=== PATIENT | female | born 1945 | race African-American/Black ===

== ENCOUNTER 2018-05-26 11:04 | Inpatient (IN) ==
[2018-05-26] MEDS ORDERED: DEXTROSE 50% 25 GM/50 ML VIAL IV PRN (12:41)
[2018-05-26] MEDS ORDERED: GLUCAGON 1 MG VIAL IM PRN (12:41)
[2018-05-26] MEDS ORDERED: ACETAMINOPHEN 325 MG TABLET PO PRN (12:41)
[2018-05-26] MEDS ORDERED: ONDANSETRON 4 MG/2 ML VIAL IV PRN (12:41)
[2018-05-26] MEDS ORDERED: SODIUM CHLORIDE 0.9% 1,000 ML IV PRN (12:48)
[2018-05-26] MEDS ORDERED: FUROSEMIDE 40 MG/4 ML VIAL IV ONE (13:10)
[2018-05-26] MEDS: ALBUTEROL/IPRATROPIUM 3 ML NEB RESP TX SCH ×2 (14:49→23:18)
[2018-05-26 17:03] LABS: Basophils % 0.3 % (0.0-0.8); Eosinophils # 0.1 10*3/uL (0.0-0.87); Eosinophils % 1.4 % (0.00-10.9); Immature Granulocytes % 0.6 %; Immature Granulocytes Absolute 0.04 #; Lymphocytes # 1.3 10*3/uL (1.4-4.0); Lymphocytes % 20.8 % (21.3-54.2); Mean Corpuscular Hemoglobin 26 PG (27-34); Mean Corpuscular Volume 92.6 FL (87-102); Mean Platelet Volume 11.5 FL (9.6-12.0); Monocytes # 0.5 10*3/uL (0.11-0.8); Monocytes % 8.6 % (1.7-12.7); NRBC # 0.05 10*3/uL; Neutrophils # 4.3 10*3/uL (1.4-7.4); Neutrophils % 68.3 % (38.7-73.9); Platelet Count 240 T/CUMM (130-400); Red Blood Count 2.16 MC/CUMM (3.8-5.5); Red Cell Distribution Width 20.1 % (9.3-17.3); White Blood Count 6.3 T/CUMM (4-12)
[2018-05-26 17:27] LABS: Alanine Aminotransferase 19 U/L (13-56); Albumin 2.5 G/DL (3.4-5.0); Alkaline Phosphatase 156 U/L (45-117); Aspartate Amino Transferase 33 U/L (0-37); Bilirubin,Direct < 0.100 MG/DL (0.0-0.20); Bilirubin,Indirect 0.3 MG/DL (0.0-1.0); Bilirubin,Total < 0.39 MG/DL (0.2-1.0); Total Protein 6.9 G/DL (6.4-8.3)
[2018-05-26 17:37] LABS: Folate 5.2 NG/ML (5.4-24.0); Vitamin B12 476 PG/ML (211-911)
[2018-05-26 17:52] LABS: Troponin I 0.029 NG/ML (0.00-0.045)
[2018-05-26 17:59] LABS: Alanine Aminotransferase 21 U/L (13-56); Albumin 2.5 G/DL (3.4-5.0); Alkaline Phosphatase 163 U/L (45-117); Aspartate Amino Transferase 32 U/L (0-37); Bilirubin,Total < 0.39 MG/DL (0.2-1.0); Blood Urea Nitrogen 50 MG/DL (7-18); Calcium 7.7 MG/DL (8.5-10.1); Glucose 130 MG/DL (74-106); Osmolality,Calculated 291.5 MOS/KG (273-304); Sodium 139 MMOL/L (136-145); Total Protein 6.4 G/DL (6.4-8.3)
[2018-05-26 18:04] LABS: Hemoglobin 5.6 GM/DL (12.0-16.0)
[2018-05-26] MEDS ORDERED: SODIUM POLYSTYRENE SULFATE 15 GM/60 ML BOTTLE PO ONE (18:06)
[2018-05-26 18:19] LABS: Potassium 6.5 MMOL/L (3.5-5.1)
[2018-05-26 18:30] LABS: Sedimentation Rate-Westergren 129 MM/HR (0-30)
[2018-05-26 18:38] LABS: Macrocytosis Slight; Platelet Estimate Normal; Polychromasia Slight
[2018-05-26] MEDS: INSULIN LISPRO 100 UNIT/ML SUBCUT SCH ×2 (18:40→23:25)
[2018-05-26] MEDS: ASPIRIN EC 81 MG TABLET PO SCH (18:44)
[2018-05-26] MEDS: ALBUTEROL 1.25 MG/3 ML NEB RESP TX SCH (19:27)
[2018-05-26 20:00] LABS: Immunoglobulin A 362 MG/DL (70-400); Immunoglobulin G 1320 MG/DL (700-1600); Immunoglobulin M 62 MG/DL (40-230)
[2018-05-26] MEDS: FOLIC ACID 1 MG TABLET PO SCH (21:27)
[2018-05-26 22:50] LABS: Troponin I 0.032 NG/ML (0.00-0.045)
[2018-05-27] MEDS: ALBUTEROL 1.25 MG/3 ML NEB RESP TX SCH ×4 (00:22→19:21)
[2018-05-27 01:41] LABS: Potassium,Urine Random 52 MMOL/L; Sodium, Urine Random < 5.0 MMOL/L
[2018-05-27] MEDS: cefTRIAXone 2,000 MG in SYRINGE 1 EACH IV SCH ×2 (01:41→15:52)
[2018-05-27 01:46] LABS: Amorphous Crystals,Urine Occasional /HPF (Few); Apearance,Urine Slightly Hazy (Clear); Bilirubin,Urine Negative (Negative); Blood, Urine Negative (Negative); Glucose,Urine (UA) Negative (Negative); Ketones,Urine Negative (Negative); Mucus,Urine Occasional /LPF (Occasional); Nitrite,Urine Negative (Negative); Protein,Urine 100 MG/DL; RBC,Urine 4 /HPF (0-4); Urine Color Yellow (Yellow); Urine Specific Gravity 1.013 (1.001-1.035); Urine Urobilinogen < 2.0 EU/DL (0.2-1.0)
[2018-05-27] MEDS: AZITHROMYCIN INJ 250 MG in SODIUM CHLORIDE 0.9% 250 ML IV SCH ×2 (01:47→16:00)
[2018-05-27 03:55] LABS: Basophils % 0.2 % (0.0-0.8); Eosinophils # 0.1 10*3/uL (0.0-0.87); Eosinophils % 2.1 % (0.00-10.9); Hematocrit 18.2 VOL% (35.7-47.0); Immature Granulocytes % 0.6 %; Immature Granulocytes Absolute 0.04 #; Lymphocytes # 1.7 10*3/uL (1.4-4.0); Lymphocytes % 26.5 % (21.3-54.2); Mean Corpuscular Hemoglobin 25 PG (27-34); Mean Corpuscular Volume 89.7 FL (87-102); Mean Platelet Volume 12.1 FL (9.6-12.0); Monocytes # 0.5 10*3/uL (0.11-0.8); Monocytes % 8.4 % (1.7-12.7); NRBC # 0.07 10*3/uL; Neutrophils # 3.9 10*3/uL (1.4-7.4); Neutrophils % 62.2 % (38.7-73.9); Platelet Count 232 T/CUMM (130-400); Red Blood Count 2.03 MC/CUMM (3.8-5.5); Red Cell Distribution Width 20.2 % (9.3-17.3); White Blood Count 6.3 T/CUMM (4-12)
[2018-05-27 04:37] LABS: % Iron Saturation 9.8 % (18-50); Calcium 7.2 MG/DL (8.5-10.1); Osmolality,Calculated 293.3 MOS/KG (273-304); Potassium 4.8 MMOL/L (3.5-5.1)
[2018-05-27 04:41] LABS: Troponin I 0.028 NG/ML (0.00-0.045)
[2018-05-27 05:03] LABS: Hemoglobin 5.1 GM/DL (12.0-16.0)
[2018-05-27] MEDS: ALBUTEROL/IPRATROPIUM 3 ML NEB RESP TX SCH ×3 (06:07→13:59)
[2018-05-27] MEDS ORDERED: FUROSEMIDE 40 MG/4 ML VIAL IV ONE (06:30)
[2018-05-27] MEDS: INSULIN LISPRO 100 UNIT/ML SUBCUT SCH ×4 (08:08→21:10)
[2018-05-27 08:58] LABS: Carcinoembryonic Antigen 0.6 NG/ML (0.0-5.0)
[2018-05-27] MEDS: PANTOPRAZOLE 40 MG TABLET PO SCH (08:59)
[2018-05-27] MEDS: ASPIRIN EC 81 MG TABLET PO SCH (08:59)
[2018-05-27 09:02] LABS: Total Protein (Chem) 6.8 G/DL (6.4-8.3)
[2018-05-27 10:14] LABS: Hemoglobin A1 (Alkaline) 97.3 % (96.5-98.5); Hemoglobin A2 (Alkaline) 2.7 % (1.5-3.5)
[2018-05-27 10:37] LABS: Immuno Free Light Chain Kappa 12.51 MG/DL (0.33-1.94); Immuno Free Light Chain Lambda 7.89 MG/DL (0.57-2.63); Immuno Free Light Chain Ratio 1.59 MG/DL (0.26-1.65)
[2018-05-27 11:07] LABS: Albumin (SPE) 3.3 G/DL (3.2-5.3); Albumin (SPE) Rel % 48.9 %; Alpha 1 (SPE) 0.4 G/DL (0.1-0.4); Alpha 1 (SPE) Rel % 5.4 %; Alpha 2 (SPE) 0.9 G/DL (0.4-1.0); Alpha 2 (SPE) Rel % 13.4 %; Beta (SPE) 0.8 G/DL (0.5-1.1); Beta (SPE) Rel % 12.5 %; Gamma (SPE) 1.4 G/DL (0.7-1.7); Gamma (SPE) Rel % 19.8 %
[2018-05-27 11:12] LABS: Immunoglobulin A (Chem) 380 MG/DL (70-400); Immunoglobulin G (Chem) 1330 MG/DL (700-1600); Immunoglobulin M (Chem) 62 MG/DL (40-230)
[2018-05-27] MEDS: MONTELUKAST 10 MG TABLET PO SCH (11:23)
[2018-05-27 11:49] LABS: Hematocrit 24.6 VOL% (35.7-47.0); Hemoglobin 7.6 GM/DL (12.0-16.0)
[2018-05-27] MEDS: SODIUM BICARBONATE 650 MG TABLET PO SCH ×2 (15:52→21:08)
[2018-05-27] MEDS: ERGOCALCIFEROL 50,000 UNIT CAPSULE PO SCH (16:40)
[2018-05-27] MEDS: IRON (CARBONYL)/VIT C/B12/FA TABLET PO SCH (16:40)
[2018-05-27] MEDS: ENOXAPARIN 30 MG/0.3 ML SYRINGE SUBCUT SCH (16:40)
[2018-05-27] MEDS: FOLIC ACID 1 MG TABLET PO SCH (21:08)
[2018-05-27] MEDS: CARVEDILOL 3.125 MG TABLET PO SCH (21:32)
[2018-05-28] MEDS: ALBUTEROL 1.25 MG/3 ML NEB RESP TX SCH ×4 (00:39→19:33)
[2018-05-28 05:38] LABS: Calcium 7.5 MG/DL (8.5-10.1); Osmolality,Calculated 291.1 MOS/KG (273-304)
[2018-05-28] MEDS: INSULIN LISPRO 100 UNIT/ML SUBCUT SCH ×4 (08:08→21:20)
[2018-05-28] MEDS: PANTOPRAZOLE 40 MG TABLET PO SCH (08:36)
[2018-05-28] MEDS: ASPIRIN EC 81 MG TABLET PO SCH (08:36)
[2018-05-28] MEDS: CARVEDILOL 3.125 MG TABLET PO SCH (08:37)
[2018-05-28] MEDS: MONTELUKAST 10 MG TABLET PO SCH (08:37)
[2018-05-28] MEDS: IRON (CARBONYL)/VIT C/B12/FA TABLET PO SCH (08:37)
[2018-05-28] MEDS: SODIUM BICARBONATE 650 MG TABLET PO SCH ×3 (08:37→21:20)
[2018-05-28 08:53] LABS: Basophils % 0.5 % (0.0-0.8); Eosinophils # 0.2 10*3/uL (0.0-0.87); Eosinophils % 3.6 % (0.00-10.9); Hematocrit 24.5 VOL% (35.7-47.0); Hemoglobin 7.4 GM/DL (12.0-16.0); Immature Granulocytes % 1.3 %; Immature Granulocytes Absolute 0.08 #; Lymphocytes # 1.2 10*3/uL (1.4-4.0); Lymphocytes % 18.1 % (21.3-54.2); Mean Corpuscular HGB Conc 30.2 GM/DL (32-36); Mean Corpuscular Hemoglobin 27 PG (27-34); Mean Corpuscular Volume 87.8 FL (87-102); Mean Platelet Volume 11.9 FL (9.6-12.0); Monocytes # 0.6 10*3/uL (0.11-0.8); NRBC # 0.04 10*3/uL; Neutrophils # 4.3 10*3/uL (1.4-7.4); Neutrophils % 67.5 % (38.7-73.9); Platelet Count 241 T/CUMM (130-400); Red Blood Count 2.79 MC/CUMM (3.8-5.5); Red Cell Distribution Width 18.9 % (9.3-17.3); White Blood Count 6.4 T/CUMM (4-12)
[2018-05-28] MEDS ORDERED: SODIUM CHLORIDE 0.9% 1,000 ML IV PRN (09:34)
[2018-05-28] MEDS: MAGNESIUM CHLORIDE 64 MG TABLET PO SCH (11:25)
[2018-05-28] MEDS ORDERED: MAGNESIUM SULF RIDER 2 GM in PREMIX 1 EACH IV ONE (15:01)
[2018-05-28] MEDS: cefTRIAXone 2,000 MG in SYRINGE 1 EACH IV SCH (15:25)
[2018-05-28] MEDS: ENOXAPARIN 30 MG/0.3 ML SYRINGE SUBCUT SCH (15:33)
[2018-05-28] MEDS: AZITHROMYCIN INJ 250 MG in SODIUM CHLORIDE 0.9% 250 ML IV SCH (16:58)
[2018-05-28] MEDS: CARVEDILOL 6.25 MG TABLET PO SCH (16:58)
[2018-05-28] MEDS: FOLIC ACID 1 MG TABLET PO SCH (21:20)
[2018-05-29] MEDS: ALBUTEROL 1.25 MG/3 ML NEB RESP TX SCH ×4 (00:17→19:49)
[2018-05-29 02:28] LABS: Calcium 7.2 MG/DL (8.5-10.1); Osmolality,Calculated 288.4 MOS/KG (273-304); Potassium 4.2 MMOL/L (3.5-5.1)
[2018-05-29 06:30] LABS: Basophils % 0.5 % (0.0-0.8); Eosinophils # 0.3 10*3/uL (0.0-0.87); Eosinophils % 4.4 % (0.00-10.9); Hematocrit 29.3 VOL% (35.7-47.0); Hemoglobin 8.8 GM/DL (12.0-16.0); Immature Granulocytes % 0.9 %; Immature Granulocytes Absolute 0.06 #; Lymphocytes # 1.3 10*3/uL (1.4-4.0); Lymphocytes % 20.6 % (21.3-54.2); Mean Corpuscular Hemoglobin 26 PG (27-34); Mean Corpuscular Volume 85.4 FL (87-102); Mean Platelet Volume 11.3 FL (9.6-12.0); Monocytes # 0.8 10*3/uL (0.11-0.8); Monocytes % 12.1 % (1.7-12.7); NRBC # 0.02 10*3/uL; Neutrophils # 3.9 10*3/uL (1.4-7.4); Neutrophils % 61.5 % (38.7-73.9); Platelet Count 245 T/CUMM (130-400); Red Blood Count 3.43 MC/CUMM (3.8-5.5); Red Cell Distribution Width 19.8 % (9.3-17.3); White Blood Count 6.4 T/CUMM (4-12)
[2018-05-29] MEDS: MONTELUKAST 10 MG TABLET PO SCH (09:19)
[2018-05-29] MEDS: MAGNESIUM CHLORIDE 64 MG TABLET PO SCH (09:19)
[2018-05-29] MEDS: PANTOPRAZOLE 40 MG TABLET PO SCH (09:19)
[2018-05-29] MEDS: IRON (CARBONYL)/VIT C/B12/FA TABLET PO SCH (09:19)
[2018-05-29] MEDS: CARVEDILOL 6.25 MG TABLET PO SCH (09:19)
[2018-05-29] MEDS: INSULIN LISPRO 100 UNIT/ML SUBCUT SCH ×4 (09:19→21:14)
[2018-05-29] MEDS: ASPIRIN EC 81 MG TABLET PO SCH (09:19)
[2018-05-29] MEDS: SODIUM BICARBONATE 650 MG TABLET PO SCH ×3 (09:19→21:15)
[2018-05-29 11:54] LABS: Protein/Creatinine Ratio,Urine 2.3 RATIO
[2018-05-29] MEDS: ENOXAPARIN 30 MG/0.3 ML SYRINGE SUBCUT SCH (16:42)
[2018-05-29] MEDS: cefTRIAXone 2,000 MG in SYRINGE 1 EACH IV SCH (16:43)
[2018-05-29] MEDS: AZITHROMYCIN INJ 250 MG in SODIUM CHLORIDE 0.9% 250 ML IV SCH (16:43)
[2018-05-29] MEDS: FUROSEMIDE 20 MG/2 ML VIAL IV SCH (16:43)
[2018-05-29] MEDS: FOLIC ACID 1 MG TABLET PO SCH (21:14)
[2018-05-29] MEDS: CARVEDILOL 12.5 MG TABLET PO SCH (21:14)
[2018-05-30] MEDS: ALBUTEROL 1.25 MG/3 ML NEB RESP TX SCH ×4 (00:29→19:33)
[2018-05-30 05:29] LABS: Basophils % 0.4 % (0.0-0.8); Eosinophils # 0.2 10*3/uL (0.0-0.87); Hematocrit 29.8 VOL% (35.7-47.0); Hemoglobin 8.8 GM/DL (12.0-16.0); Immature Granulocytes % 0.8 %; Immature Granulocytes Absolute 0.04 #; Lymphocytes # 0.9 10*3/uL (1.4-4.0); Mean Corpuscular HGB Conc 29.5 GM/DL (32-36); Mean Corpuscular Hemoglobin 26 PG (27-34); Mean Corpuscular Volume 86.9 FL (87-102); Mean Platelet Volume 12.1 FL (9.6-12.0); Monocytes # 0.7 10*3/uL (0.11-0.8); Monocytes % 14.9 % (1.7-12.7); Neutrophils # 2.9 10*3/uL (1.4-7.4); Neutrophils % 59.9 % (38.7-73.9); Platelet Count 229 T/CUMM (130-400); Red Blood Count 3.43 MC/CUMM (3.8-5.5); Red Cell Distribution Width 19.7 % (9.3-17.3); White Blood Count 4.8 T/CUMM (4-12)
[2018-05-30 05:56] LABS: Calcium 7.7 MG/DL (8.5-10.1); Osmolality,Calculated 288.4 MOS/KG (273-304); Potassium 4.2 MMOL/L (3.5-5.1)
[2018-05-30] MEDS: SODIUM BICARBONATE 650 MG TABLET PO SCH ×3 (09:09→20:37)
[2018-05-30] MEDS: FUROSEMIDE 20 MG/2 ML VIAL IV SCH (09:09)
[2018-05-30] MEDS: IRON (CARBONYL)/VIT C/B12/FA TABLET PO SCH (09:09)
[2018-05-30] MEDS: ASPIRIN EC 81 MG TABLET PO SCH (09:10)
[2018-05-30] MEDS: MONTELUKAST 10 MG TABLET PO SCH (09:10)
[2018-05-30] MEDS: CARVEDILOL 12.5 MG TABLET PO SCH ×2 (09:10→20:37)
[2018-05-30] MEDS: MAGNESIUM CHLORIDE 64 MG TABLET PO SCH (09:10)
[2018-05-30] MEDS: PANTOPRAZOLE 40 MG TABLET PO SCH (09:10)
[2018-05-30] MEDS: INSULIN LISPRO 100 UNIT/ML SUBCUT SCH ×4 (09:11→21:23)
[2018-05-30] MEDS ORDERED: FUROSEMIDE 20 MG/2 ML VIAL IV ONE (11:01)
[2018-05-30] MEDS: AZITHROMYCIN INJ 250 MG in SODIUM CHLORIDE 0.9% 250 ML IV SCH (16:49)
[2018-05-30] MEDS: ENOXAPARIN 30 MG/0.3 ML SYRINGE SUBCUT SCH (16:49)
[2018-05-30] MEDS: cefTRIAXone 2,000 MG in SYRINGE 1 EACH IV SCH (16:49)
[2018-05-30] MEDS: FOLIC ACID 1 MG TABLET PO SCH (20:38)
[2018-05-31] MEDS: ALBUTEROL 1.25 MG/3 ML NEB RESP TX SCH ×4 (01:08→19:50)
[2018-05-31 05:42] LABS: Basophils % 0.6 % (0.0-0.8); Eosinophils # 0.3 10*3/uL (0.0-0.87); Eosinophils % 6.3 % (0.00-10.9); Hematocrit 30.1 VOL% (35.7-47.0); Immature Granulocytes % 0.6 %; Immature Granulocytes Absolute 0.03 #; Lymphocytes # 1.2 10*3/uL (1.4-4.0); Lymphocytes % 25.8 % (21.3-54.2); Mean Corpuscular HGB Conc 29.9 GM/DL (32-36); Mean Corpuscular Hemoglobin 26 PG (27-34); Mean Platelet Volume 11.4 FL (9.6-12.0); Monocytes # 0.8 10*3/uL (0.11-0.8); Monocytes % 16.9 % (1.7-12.7); Neutrophils # 2.4 10*3/uL (1.4-7.4); Neutrophils % 49.8 % (38.7-73.9); Platelet Count 212 T/CUMM (130-400); Red Blood Count 3.42 MC/CUMM (3.8-5.5); Red Cell Distribution Width 19.1 % (9.3-17.3); White Blood Count 4.7 T/CUMM (4-12)
[2018-05-31 06:12] LABS: Band Neutrophils 2 % (0-10); Eosinophils 7 % (0-10); Hypochromasia 1+; Lymphocytes 29 % (20-55); Ovalocytes Slight; Platelet Estimate Adequate; Segmented Neutrophils 51 % (50-85); Total Cells Counted 100
[2018-05-31 06:15] LABS: Osmolality,Calculated 288.4 MOS/KG (273-304)
[2018-05-31] MEDS: FUROSEMIDE 20 MG/2 ML VIAL IV SCH (09:16)
[2018-05-31] MEDS: ASPIRIN EC 81 MG TABLET PO SCH (09:17)
[2018-05-31] MEDS: CARVEDILOL 12.5 MG TABLET PO SCH ×2 (09:17→20:59)
[2018-05-31] MEDS: SODIUM BICARBONATE 650 MG TABLET PO SCH ×3 (09:17→20:58)
[2018-05-31] MEDS: MONTELUKAST 10 MG TABLET PO SCH (09:18)
[2018-05-31] MEDS: IRON (CARBONYL)/VIT C/B12/FA TABLET PO SCH (09:18)
[2018-05-31] MEDS: MAGNESIUM CHLORIDE 64 MG TABLET PO SCH ×2 (09:18→20:58)
[2018-05-31] MEDS: PANTOPRAZOLE 40 MG TABLET PO SCH (09:20)
[2018-05-31] MEDS ORDERED: FUROSEMIDE 40 MG/4 ML VIAL IV SCH (10:25)
[2018-05-31] MEDS: INSULIN LISPRO 100 UNIT/ML SUBCUT SCH ×4 (10:33→20:59)
[2018-05-31] MEDS: metOLazone 2.5 MG TABLET PO SCH (12:10)
[2018-05-31] MEDS: cefTRIAXone 2,000 MG in SYRINGE 1 EACH IV SCH (17:10)
[2018-05-31] MEDS: AZITHROMYCIN INJ 250 MG in SODIUM CHLORIDE 0.9% 250 ML IV SCH (17:13)
[2018-05-31] MEDS: ENOXAPARIN 30 MG/0.3 ML SYRINGE SUBCUT SCH (17:13)
[2018-05-31] MEDS: FOLIC ACID 1 MG TABLET PO SCH (20:59)
[2018-05-31] MEDS ORDERED: FUROSEMIDE 40 MG/4 ML VIAL IV ONE (21:46)
[2018-05-31] MEDS ORDERED: ALBUTEROL/IPRATROPIUM 3 ML NEB RESP TX ONE (21:47)
[2018-06-01] MEDS: ALBUTEROL 1.25 MG/3 ML NEB RESP TX SCH ×4 (01:45→19:17)
[2018-06-01 05:56] LABS: Basophils % 0.5 % (0.0-0.8); Eosinophils # 0.2 10*3/uL (0.0-0.87); Eosinophils % 4.4 % (0.00-10.9); Hematocrit 30.1 VOL% (35.7-47.0); Hemoglobin 8.7 GM/DL (12.0-16.0); Immature Granulocytes % 0.4 %; Immature Granulocytes Absolute 0.02 #; Lymphocytes # 0.9 10*3/uL (1.4-4.0); Lymphocytes % 16.3 % (21.3-54.2); Mean Corpuscular HGB Conc 28.9 GM/DL (32-36); Mean Corpuscular Hemoglobin 25 PG (27-34); Mean Platelet Volume 11.5 FL (9.6-12.0); Monocytes # 0.6 10*3/uL (0.11-0.8); Monocytes % 10.5 % (1.7-12.7); Neutrophils # 3.7 10*3/uL (1.4-7.4); Neutrophils % 67.9 % (38.7-73.9); Platelet Count 202 T/CUMM (130-400); Red Blood Count 3.42 MC/CUMM (3.8-5.5); Red Cell Distribution Width 18.6 % (9.3-17.3); White Blood Count 5.5 T/CUMM (4-12)
[2018-06-01 06:49] LABS: Acanthocytes Few; Hypochromasia 1+; Microcytosis 1+
[2018-06-01 06:50] LABS: Ovalocytes Slight; Platelet Estimate Adequate; Tear Drop Cells Slight
[2018-06-01] MEDS: metOLazone 2.5 MG TABLET PO SCH (08:30)
[2018-06-01] MEDS: MONTELUKAST 10 MG TABLET PO SCH (08:30)
[2018-06-01] MEDS: INSULIN LISPRO 100 UNIT/ML SUBCUT SCH ×4 (08:30→21:27)
[2018-06-01] MEDS: MAGNESIUM CHLORIDE 64 MG TABLET PO SCH ×2 (08:30→21:24)
[2018-06-01] MEDS: PANTOPRAZOLE 40 MG TABLET PO SCH ×2 (08:30→21:24)
[2018-06-01] MEDS: IRON (CARBONYL)/VIT C/B12/FA TABLET PO SCH (08:30)
[2018-06-01] MEDS: ASPIRIN EC 81 MG TABLET PO SCH (08:30)
[2018-06-01] MEDS: SODIUM BICARBONATE 650 MG TABLET PO SCH ×2 (08:30→21:24)
[2018-06-01] MEDS: CARVEDILOL 12.5 MG TABLET PO SCH (08:30)
[2018-06-01 09:58] LABS: Alanine Aminotransferase 13 U/L (13-56); Albumin 2.4 G/DL (3.4-5.0); Alkaline Phosphatase 171 U/L (45-117); Aspartate Amino Transferase 16 U/L (0-37); Bilirubin,Total < 0.39 MG/DL (0.2-1.0); Blood Urea Nitrogen 50 MG/DL (7-18); Calcium 8.3 MG/DL (8.5-10.1); Glucose 55 MG/DL (74-106); Osmolality,Calculated 293.1 MOS/KG (273-304); Potassium 4.4 MMOL/L (3.5-5.1); Sodium 142 MMOL/L (136-145); Total Protein 7.4 G/DL (6.4-8.3)
[2018-06-01] MEDS ORDERED: PROPOFOL 200 MG/20 ML VIAL IV ONE (10:00)
[2018-06-01] MEDS ORDERED: LIDOCAINE 2% 5 ML VIAL ONE (10:00)
[2018-06-01] MEDS ORDERED: IRON SUCROSE 300 MG in SODIUM CHLORIDE 0.9% 100 ML IV ONE (14:12)
[2018-06-01] MEDS ORDERED: TUBERCULIN SKIN TEST 0.1 ML SYRINGE INTRADERM ONE (15:27)
[2018-06-01] MEDS: FUROSEMIDE 40 MG/4 ML VIAL IV SCH (17:09)
[2018-06-01] MEDS: cefTRIAXone 2,000 MG in SYRINGE 1 EACH IV SCH (17:11)
[2018-06-01] MEDS: ENOXAPARIN 30 MG/0.3 ML SYRINGE SUBCUT SCH (17:14)
[2018-06-01] MEDS: AZITHROMYCIN INJ 250 MG in SODIUM CHLORIDE 0.9% 250 ML IV SCH (19:16)
[2018-06-01] MEDS: ISOSORBIDE MONONITRATE 20 MG TABLET PO SCH (19:20)
[2018-06-01] MEDS: hydrALAZINE 25 MG TABLET PO SCH ×2 (19:21→21:24)
[2018-06-01] MEDS: CARVEDILOL 25 MG TABLET PO SCH (21:24)
[2018-06-01] MEDS: FOLIC ACID 1 MG TABLET PO SCH (21:25)
[2018-06-02] MEDS: ALBUTEROL 1.25 MG/3 ML NEB RESP TX SCH ×4 (00:46→19:25)
[2018-06-02 05:05] LABS: Basophils % 0.7 % (0.0-0.8); Eosinophils # 0.2 10*3/uL (0.0-0.87); Eosinophils % 5.3 % (0.00-10.9); Hematocrit 27.5 VOL% (35.7-47.0); Hemoglobin 8.1 GM/DL (12.0-16.0); Immature Granulocytes % 0.4 %; Immature Granulocytes Absolute 0.02 #; Lymphocytes % 21.9 % (21.3-54.2); Mean Corpuscular HGB Conc 29.5 GM/DL (32-36); Mean Corpuscular Hemoglobin 26 PG (27-34); Mean Corpuscular Volume 87.6 FL (87-102); Monocytes # 0.5 10*3/uL (0.11-0.8); Monocytes % 10.3 % (1.7-12.7); Neutrophils # 2.8 10*3/uL (1.4-7.4); Neutrophils % 61.4 % (38.7-73.9); Platelet Count 196 T/CUMM (130-400); Red Blood Count 3.14 MC/CUMM (3.8-5.5); Red Cell Distribution Width 18.3 % (9.3-17.3); White Blood Count 4.6 T/CUMM (4-12)
[2018-06-02 05:30] LABS: Osmolality,Calculated 295.1 MOS/KG (273-304); Potassium 4.3 MMOL/L (3.5-5.1)
[2018-06-02] MEDS ORDERED: IRON SUCROSE 300 MG in SODIUM CHLORIDE 0.9% 100 ML IV ONE (08:26)
[2018-06-02] MEDS: hydrALAZINE 25 MG TABLET PO SCH ×3 (08:37→20:44)
[2018-06-02] MEDS: PANTOPRAZOLE 40 MG TABLET PO SCH ×2 (08:37→20:42)
[2018-06-02] MEDS: CARVEDILOL 25 MG TABLET PO SCH ×2 (08:37→20:44)
[2018-06-02] MEDS: metOLazone 2.5 MG TABLET PO SCH (08:38)
[2018-06-02] MEDS: MAGNESIUM CHLORIDE 64 MG TABLET PO SCH ×2 (08:38→20:48)
[2018-06-02] MEDS: ISOSORBIDE MONONITRATE 20 MG TABLET PO SCH ×2 (08:38→16:31)
[2018-06-02] MEDS: SODIUM BICARBONATE 650 MG TABLET PO SCH ×2 (08:38→20:48)
[2018-06-02] MEDS: MONTELUKAST 10 MG TABLET PO SCH (08:38)
[2018-06-02] MEDS: ASPIRIN EC 81 MG TABLET PO SCH (08:39)
[2018-06-02] MEDS: FUROSEMIDE 40 MG/4 ML VIAL IV SCH (08:39)
[2018-06-02] MEDS: INSULIN LISPRO 100 UNIT/ML SUBCUT SCH ×4 (11:20→20:46)
[2018-06-02] MEDS: AZITHROMYCIN INJ 250 MG in SODIUM CHLORIDE 0.9% 250 ML IV SCH (16:30)
[2018-06-02] MEDS: ENOXAPARIN 30 MG/0.3 ML SYRINGE SUBCUT SCH (16:31)
[2018-06-02] MEDS: FUROSEMIDE 100 MG/10 ML VIAL IV SCH (16:31)
[2018-06-02] MEDS: cefTRIAXone 2,000 MG in SYRINGE 1 EACH IV SCH (16:34)
[2018-06-02] MEDS: metOLazone 5 MG TABLET PO SCH (16:38)
[2018-06-02] MEDS: FOLIC ACID 1 MG TABLET PO SCH (20:42)
[2018-06-03] MEDS: ALBUTEROL 1.25 MG/3 ML NEB RESP TX SCH ×2 (01:27→07:35)
[2018-06-03 01:39] LABS: Basophils % 0.4 % (0.0-0.8); Eosinophils # 0.3 10*3/uL (0.0-0.87); Eosinophils % 5.4 % (0.00-10.9); Hematocrit 26.9 VOL% (35.7-47.0); Hemoglobin 8.1 GM/DL (12.0-16.0); Immature Granulocytes % 1.1 %; Immature Granulocytes Absolute 0.06 #; Lymphocytes % 18.5 % (21.3-54.2); Mean Corpuscular HGB Conc 30.1 GM/DL (32-36); Mean Corpuscular Hemoglobin 27 PG (27-34); Mean Corpuscular Volume 87.9 FL (87-102); Mean Platelet Volume 11.4 FL (9.6-12.0); Monocytes # 0.5 10*3/uL (0.11-0.8); Monocytes % 9.2 % (1.7-12.7); Neutrophils # 3.4 10*3/uL (1.4-7.4); Neutrophils % 65.4 % (38.7-73.9); Platelet Count 185 T/CUMM (130-400); Red Blood Count 3.06 MC/CUMM (3.8-5.5); Red Cell Distribution Width 18.3 % (9.3-17.3); White Blood Count 5.2 T/CUMM (4-12)
[2018-06-03 01:55] LABS: Osmolality,Calculated 295.4 MOS/KG (273-304); Potassium 3.9 MMOL/L (3.5-5.1)
[2018-06-03] MEDS ORDERED: IRON SUCROSE 300 MG in SODIUM CHLORIDE 0.9% 100 ML IV ONE (08:00)
[2018-06-03] MEDS: MAGNESIUM CHLORIDE 64 MG TABLET PO SCH ×2 (09:11→20:26)
[2018-06-03] MEDS: FUROSEMIDE 100 MG/10 ML VIAL IV SCH ×2 (09:12→16:57)
[2018-06-03] MEDS: PANTOPRAZOLE 40 MG TABLET PO SCH ×2 (09:12→20:26)
[2018-06-03] MEDS: hydrALAZINE 25 MG TABLET PO SCH (09:12)
[2018-06-03] MEDS: CARVEDILOL 25 MG TABLET PO SCH ×2 (09:12→20:26)
[2018-06-03] MEDS: MONTELUKAST 10 MG TABLET PO SCH (09:12)
[2018-06-03] MEDS: ISOSORBIDE MONONITRATE 20 MG TABLET PO SCH ×2 (09:12→16:59)
[2018-06-03] MEDS: ASPIRIN EC 81 MG TABLET PO SCH (09:13)
[2018-06-03] MEDS: INSULIN LISPRO 100 UNIT/ML SUBCUT SCH ×4 (09:13→20:27)
[2018-06-03] MEDS: metOLazone 5 MG TABLET PO SCH (09:23)
[2018-06-03] MEDS: SODIUM BICARBONATE 650 MG TABLET PO SCH ×2 (09:25→20:26)
[2018-06-03] MEDS ORDERED: ALBUTEROL/IPRATROPIUM 3 ML NEB RESP TX PRN (10:59)
[2018-06-03] MEDS: ALBUTEROL/IPRATROPIUM 3 ML NEB RESP TX SCH ×3 (11:33→19:40)
[2018-06-03] MEDS: cefTRIAXone 2,000 MG in SYRINGE 1 EACH IV SCH (16:58)
[2018-06-03] MEDS: AZITHROMYCIN INJ 250 MG in SODIUM CHLORIDE 0.9% 250 ML IV SCH (16:59)
[2018-06-03] MEDS: ENOXAPARIN 30 MG/0.3 ML SYRINGE SUBCUT SCH (16:59)
[2018-06-03] MEDS: ERGOCALCIFEROL 50,000 UNIT CAPSULE PO SCH (16:59)
[2018-06-03] MEDS: FOLIC ACID 1 MG TABLET PO SCH (20:26)
[2018-06-04] MEDS: ALBUTEROL/IPRATROPIUM 3 ML NEB RESP TX SCH ×4 (07:15→19:14)
[2018-06-04] MEDS: INSULIN LISPRO 100 UNIT/ML SUBCUT SCH ×4 (09:14→20:21)
[2018-06-04] MEDS: MAGNESIUM CHLORIDE 64 MG TABLET PO SCH ×2 (09:16→20:21)
[2018-06-04] MEDS: CARVEDILOL 25 MG TABLET PO SCH ×2 (09:16→20:21)
[2018-06-04] MEDS: ISOSORBIDE MONONITRATE 20 MG TABLET PO SCH ×2 (09:16→16:41)
[2018-06-04] MEDS: SODIUM BICARBONATE 650 MG TABLET PO SCH ×2 (09:16→20:21)
[2018-06-04] MEDS: FUROSEMIDE 100 MG/10 ML VIAL IV SCH ×2 (09:16→16:39)
[2018-06-04] MEDS: ASPIRIN EC 81 MG TABLET PO SCH (09:17)
[2018-06-04] MEDS: MONTELUKAST 10 MG TABLET PO SCH (09:17)
[2018-06-04] MEDS: PANTOPRAZOLE 40 MG TABLET PO SCH ×2 (09:17→20:21)
[2018-06-04] MEDS: metOLazone 5 MG TABLET PO SCH (09:28)
[2018-06-04] MEDS: cefTRIAXone 2,000 MG in SYRINGE 1 EACH IV SCH (16:39)
[2018-06-04] MEDS: ENOXAPARIN 30 MG/0.3 ML SYRINGE SUBCUT SCH (16:40)
[2018-06-04] MEDS: AZITHROMYCIN INJ 250 MG in SODIUM CHLORIDE 0.9% 250 ML IV SCH (16:42)
[2018-06-04] MEDS: FOLIC ACID 1 MG TABLET PO SCH (20:21)
[2018-06-05 04:36] LABS: Calcium 8.1 MG/DL (8.5-10.1); Osmolality,Calculated 291.5 MOS/KG (273-304); Potassium 3.4 MMOL/L (3.5-5.1)
[2018-06-05] MEDS: ALBUTEROL/IPRATROPIUM 3 ML NEB RESP TX SCH ×4 (07:59→19:05)
[2018-06-05] MEDS: ISOSORBIDE MONONITRATE 20 MG TABLET PO SCH ×2 (09:46→17:23)
[2018-06-05] MEDS: SODIUM BICARBONATE 650 MG TABLET PO SCH ×2 (09:46→20:21)
[2018-06-05] MEDS: ASPIRIN EC 81 MG TABLET PO SCH (09:47)
[2018-06-05] MEDS: PANTOPRAZOLE 40 MG TABLET PO SCH ×2 (09:47→20:21)
[2018-06-05] MEDS: FUROSEMIDE 100 MG/10 ML VIAL IV SCH ×2 (09:47→17:23)
[2018-06-05] MEDS: MONTELUKAST 10 MG TABLET PO SCH (09:47)
[2018-06-05] MEDS: metOLazone 5 MG TABLET PO SCH (09:47)
[2018-06-05] MEDS: MAGNESIUM CHLORIDE 64 MG TABLET PO SCH ×2 (09:48→20:21)
[2018-06-05] MEDS: POTASSIUM CHLORIDE 20 MEQ TABLET PO SCH ×2 (09:48→23:12)
[2018-06-05] MEDS: CARVEDILOL 25 MG TABLET PO SCH ×2 (09:48→20:21)
[2018-06-05] MEDS: INSULIN LISPRO 100 UNIT/ML SUBCUT SCH ×4 (09:49→23:17)
[2018-06-05] MEDS: ENOXAPARIN 30 MG/0.3 ML SYRINGE SUBCUT SCH (17:22)
[2018-06-05] MEDS: cefTRIAXone 2,000 MG in SYRINGE 1 EACH IV SCH (17:23)
[2018-06-05] MEDS: FOLIC ACID 1 MG TABLET PO SCH (20:21)
[2018-06-06 03:14] LABS: Calcium 8.2 MG/DL (8.5-10.1); Osmolality,Calculated 294.7 MOS/KG (273-304); Potassium 3.5 MMOL/L (3.5-5.1)
[2018-06-06] MEDS: ALBUTEROL/IPRATROPIUM 3 ML NEB RESP TX SCH ×2 (07:16→11:05)
[2018-06-06] MEDS: MONTELUKAST 10 MG TABLET PO SCH (08:12)
[2018-06-06] MEDS: ASPIRIN EC 81 MG TABLET PO SCH (08:12)
[2018-06-06] MEDS: CARVEDILOL 25 MG TABLET PO SCH (08:12)
[2018-06-06] MEDS: PANTOPRAZOLE 40 MG TABLET PO SCH (08:12)
[2018-06-06] MEDS: MAGNESIUM CHLORIDE 64 MG TABLET PO SCH (08:13)
[2018-06-06] MEDS: ISOSORBIDE MONONITRATE 20 MG TABLET PO SCH (08:13)
[2018-06-06] MEDS: INSULIN LISPRO 100 UNIT/ML SUBCUT SCH (08:14)
[2018-06-06 08:35] VITALS: BP 169/77
[2018-06-06] MEDS ORDERED: FUROSEMIDE 80 MG TABLET PO SCH (09:00)
== END 2018-06-06 12:48 | DRG 291 ==
LOC: SUATTDRO 11:43 → SUPCPDRO 11:43 → N.2W 11:43 → N.4E 14:36
PROVIDERS: ADMIT Internal Medicine; ATTEND Internal Medicine

== ENCOUNTER 2018-06-29 19:29 | Inpatient (IN) ==
[2018-06-29] MEDS ORDERED: NICOTINE 21 MG/24 HR PATCH TRANSDERM PRN (23:14)
[2018-06-29] MEDS ORDERED: GLUCAGON 1 MG VIAL IM PRN (23:14)
[2018-06-29] MEDS ORDERED: ONDANSETRON 4 MG/2 ML VIAL IV PRN (23:14)
[2018-06-29] MEDS ORDERED: FUROSEMIDE 40 MG/4 ML VIAL IV PRN (23:14)
[2018-06-29] MEDS ORDERED: SODIUM CHLORIDE 0.9% 1,000 ML IV PRN ×2 (23:14→23:44)
[2018-06-29] MEDS ORDERED: DEXTROSE 50% 25 GM/50 ML SYRINGE IV PRN (23:14)
[2018-06-29] MEDS ORDERED: ALBUTEROL 2.5 MG/3 ML NEB RESP TX PRN (23:14)
[2018-06-29] MEDS ORDERED: MORPHINE 4 MG/1 ML VIAL IV PRN (23:14)
[2018-06-29] MEDS ORDERED: diphenhydrAMINE CAP 25 MG CAPSULE PO PRN (23:14)
[2018-06-29 23:26] LABS: Basophils % 0.4 % (0.0-0.8); Eosinophils # 0.2 10*3/uL (0.0-0.87); Eosinophils % 2.9 % (0.00-10.9); Hematocrit 20.6 VOL% (35.7-47.0); Immature Granulocytes % 1.5 %; Immature Granulocytes Absolute 0.08 #; Lymphocytes # 0.9 10*3/uL (1.4-4.0); Lymphocytes % 15.8 % (21.3-54.2); Mean Corpuscular HGB Conc 28.6 GM/DL (32-36); Mean Corpuscular Hemoglobin 28 PG (27-34); Mean Corpuscular Volume 98.1 FL (87-102); Mean Platelet Volume 11.1 FL (9.6-12.0); Monocytes # 0.5 10*3/uL (0.11-0.8); Monocytes % 9.4 % (1.7-12.7); NRBC # 0.05 10*3/uL; Neutrophils # 3.9 10*3/uL (1.4-7.4); Platelet Count 230 T/CUMM (130-400); Red Cell Distribution Width 22.8 % (9.3-17.3); White Blood Count 5.5 T/CUMM (4-12)
[2018-06-29 23:29] LABS: Hemoglobin 5.9 GM/DL (12.0-16.0)
[2018-06-29 23:48] LABS: Alanine Aminotransferase 20 U/L (13-56); Albumin 2.8 G/DL (3.4-5.0); Alkaline Phosphatase 151 U/L (45-117); Aspartate Amino Transferase 14 U/L (0-37); Bilirubin,Total < 0.39 MG/DL (0.2-1.0); Blood Urea Nitrogen 80 MG/DL (7-18); Calcium 8.3 MG/DL (8.5-10.1); Glucose 139 MG/DL (74-106); Osmolality,Calculated 306.3 MOS/KG (273-304); Potassium 5.2 MMOL/L (3.5-5.1); Sodium 141 MMOL/L (136-145); Total Protein 7.3 G/DL (6.4-8.3)
[2018-06-30 00:14] LABS: Cholesterol 213 MG/DL (50-200); HDL Cholesterol 39 MG/DL (40-60); Risk Ratio 5.46; Triglycerides 153 MG/DL (2-150); VLDL CHOLESTEROL 30.6 MG/DL
[2018-06-30] MEDS ORDERED: methylPREDNISolone SOD SUC 125 MG/2 ML VIAL IV ONE (00:16)
[2018-06-30] MEDS: cefTRIAXone 1,000 MG in SYRINGE 1 EACH IV SCH (00:23)
[2018-06-30 00:27] LABS: INR 1.2; PT Patient Result 12.7 SECS
[2018-06-30 01:34] LABS: ABG Base Excess -4.8 MMOL/L (-2.5-2.5); ABG HCO3 19.7 MMOL/L (20-26); ABG Oxygen Saturation 97.2 % (95-100); ABG PCO2 33.6 MM HG (35-48); ABG PH 7.387 (7.35-7.45); ABG PO2 101.3 MM HG (80-95); ABG TCO2 20.8 MMOL/L (23-27); Allen Test Positive; Pt O2 Delivery Device Room Air
[2018-06-30] MEDS: hydrALAZINE 20 MG/1 ML VIAL IV PRN ×2 (01:38→07:08)
[2018-06-30] MEDS: AZITHROMYCIN INJ 500 MG in SODIUM CHLORIDE 0.9% 250 ML IV SCH (01:40)
[2018-06-30] MEDS: ALBUTEROL/IPRATROPIUM 3 ML NEB RESP TX SCH ×5 (02:29→19:55)
[2018-06-30 03:07] LABS: Apearance,Urine Slightly Hazy (Clear); Bacteria,Urine Occasional /HPF (Few); Bilirubin,Urine Negative (Negative); Blood, Urine Small mg/dL (Negative); Glucose,Urine (UA) Negative (Negative); Hyaline Casts,Urine 1 /LPF (0-3); Ketones,Urine Negative (Negative); Mucus,Urine Occasional /LPF (Occasional); Nitrite,Urine Negative (Negative); Protein,Urine 30 MG/DL; RBC,Urine 19 /HPF (0-4); Squamous Epithelial Cell,Urine Occasional /HPF (0-10); Urine Color Yellow (Yellow); Urine Specific Gravity 1.011 (1.001-1.035); Urine Urobilinogen < 2.0 EU/DL (0.2-1.0); WBC,Urine 25 /HPF (0-6)
[2018-06-30 04:07] LABS: Platelet Estimate Normal; Polychromasia Few
[2018-06-30 04:08] LABS: Elliptocytes Few
[2018-06-30] MEDS ORDERED: SODIUM CHLORIDE 0.9% 1,000 ML IV PRN (04:40)
[2018-06-30] MEDS ORDERED: FUROSEMIDE 20 MG/2 ML VIAL IV ONE ×2 (04:54)
[2018-06-30] MEDS ORDERED: POLYETHYLENE GLYCOL 3350/ELECTROLYTES 4,000 ML BOTTLE PEG ONE (07:20)
[2018-06-30 07:28] LABS: Hematocrit 29.2 VOL% (35.7-47.0)
[2018-06-30 07:34] LABS: Hemoglobin 8.8 GM/DL (12.0-16.0)
[2018-06-30] MEDS ORDERED: PANTOPRAZOLE 40 MG VIAL IV SCH (09:00)
[2018-06-30] MEDS: FUROSEMIDE 40 MG/4 ML VIAL IV SCH ×2 (09:35→16:11)
[2018-06-30] MEDS: INSULIN REGULAR 100 UNIT/ML SUBCUT SCH ×4 (09:35→23:04)
[2018-06-30] MEDS: amLODIPine 10 MG TABLET PO SCH (09:54)
[2018-06-30] MEDS: BISACODYL 5 MG TABLET PO SCH ×3 (10:05→23:02)
[2018-06-30] MEDS: CARVEDILOL 25 MG TABLET PO SCH ×2 (11:26→23:03)
[2018-06-30 12:51] LABS: Hematocrit 28.8 VOL% (35.7-47.0); Hemoglobin 8.8 GM/DL (12.0-16.0)
[2018-06-30] MEDS: ISOSORBIDE MONONITRATE 20 MG TABLET PO SCH (14:37)
[2018-06-30 20:16] LABS: Hematocrit 27.2 VOL% (35.7-47.0); Hemoglobin 8.1 GM/DL (12.0-16.0)
[2018-06-30] MEDS ORDERED: MAGNESIUM CITRATE 300 ML BOTTLE PO ONE (21:00)
[2018-06-30] MEDS: PANTOPRAZOLE 40 MG TABLET PO SCH (23:03)
[2018-07-01] MEDS: ALBUTEROL/IPRATROPIUM 3 ML NEB RESP TX SCH ×7 (00:10→22:37)
[2018-07-01] MEDS: cefTRIAXone 1,000 MG in SYRINGE 1 EACH IV SCH (01:35)
[2018-07-01] MEDS: AZITHROMYCIN INJ 500 MG in SODIUM CHLORIDE 0.9% 250 ML IV SCH (01:36)
[2018-07-01 05:08] LABS: Hematocrit 29.1 VOL% (35.7-47.0); Hemoglobin 8.4 GM/DL (12.0-16.0); Immature Granulocytes % 0.8 %; Immature Granulocytes Absolute 0.04 #; Lymphocytes # 0.5 10*3/uL (1.4-4.0); Lymphocytes % 11.2 % (21.3-54.2); Mean Corpuscular HGB Conc 28.9 GM/DL (32-36); Mean Corpuscular Hemoglobin 28 PG (27-34); Mean Platelet Volume 11.5 FL (9.6-12.0); Monocytes # 0.4 10*3/uL (0.11-0.8); Monocytes % 7.9 % (1.7-12.7); NRBC # 0.06 10*3/uL; Neutrophils # 3.9 10*3/uL (1.4-7.4); Neutrophils % 80.1 % (38.7-73.9); Platelet Count 213 T/CUMM (130-400); Red Blood Count 3.03 MC/CUMM (3.8-5.5); Red Cell Distribution Width 21.5 % (9.3-17.3); White Blood Count 4.8 T/CUMM (4-12)
[2018-07-01 05:10] LABS: Hematocrit 29.1 VOL% (35.7-47.0); Hemoglobin 8.5 GM/DL (12.0-16.0)
[2018-07-01 05:41] LABS: Calcium 8.1 MG/DL (8.5-10.1); Osmolality,Calculated 303.1 MOS/KG (273-304); Potassium 5.1 MMOL/L (3.5-5.1)
[2018-07-01] MEDS ORDERED: MAGNESIUM CITRATE 300 ML BOTTLE PO ONE (07:16)
[2018-07-01] MEDS: INSULIN REGULAR 100 UNIT/ML SUBCUT SCH ×4 (08:41→22:32)
[2018-07-01] MEDS: CARVEDILOL 25 MG TABLET PO SCH ×2 (08:42→22:32)
[2018-07-01] MEDS: amLODIPine 10 MG TABLET PO SCH (08:42)
[2018-07-01] MEDS: LEFLUNOMIDE 10 MG TABLET PO SCH (08:42)
[2018-07-01] MEDS: ISOSORBIDE MONONITRATE 20 MG TABLET PO SCH ×2 (08:42→15:22)
[2018-07-01] MEDS: FUROSEMIDE 40 MG/4 ML VIAL IV SCH ×2 (08:42→15:21)
[2018-07-01] MEDS: ASCORBIC ACID 500 MG TABLET PO SCH (08:43)
[2018-07-01] MEDS: MONTELUKAST 10 MG TABLET PO SCH (08:43)
[2018-07-01] MEDS: PANTOPRAZOLE 40 MG TABLET PO SCH ×2 (08:43→22:32)
[2018-07-01] MEDS ORDERED: LIDOCAINE 100 MG/5 ML SYRINGE ONE (09:00)
[2018-07-01] MEDS ORDERED: ETOMIDATE 20 MG/10 ML VIAL IV ONE (09:00)
[2018-07-01 11:40] LABS: Hematocrit 28.6 VOL% (35.7-47.0); Hemoglobin 8.4 GM/DL (12.0-16.0)
[2018-07-01 15:17] LABS: Troponin I < 0.015 NG/ML (0.00-0.045)
[2018-07-02] MEDS: cefTRIAXone 1,000 MG in SYRINGE 1 EACH IV SCH (00:05)
[2018-07-02] MEDS: AZITHROMYCIN INJ 500 MG in SODIUM CHLORIDE 0.9% 250 ML IV SCH (00:10)
[2018-07-02] MEDS: ALBUTEROL/IPRATROPIUM 3 ML NEB RESP TX SCH ×6 (02:42→23:59)
[2018-07-02] MEDS: INSULIN REGULAR 100 UNIT/ML SUBCUT SCH ×4 (07:46→21:24)
[2018-07-02] MEDS: MONTELUKAST 10 MG TABLET PO SCH (09:25)
[2018-07-02] MEDS: ASCORBIC ACID 500 MG TABLET PO SCH (09:25)
[2018-07-02] MEDS: LEFLUNOMIDE 10 MG TABLET PO SCH (09:25)
[2018-07-02] MEDS: amLODIPine 10 MG TABLET PO SCH (09:25)
[2018-07-02] MEDS: FUROSEMIDE 40 MG/4 ML VIAL IV SCH ×2 (09:25→15:36)
[2018-07-02] MEDS: CARVEDILOL 25 MG TABLET PO SCH ×2 (09:25→21:24)
[2018-07-02] MEDS: ISOSORBIDE MONONITRATE 20 MG TABLET PO SCH ×2 (09:25→15:34)
[2018-07-02] MEDS: PANTOPRAZOLE 40 MG TABLET PO SCH ×2 (09:25→21:24)
[2018-07-02 12:57] LABS: Basophils % 0.2 % (0.0-0.8); Eosinophils # 0.1 10*3/uL (0.0-0.87); Hematocrit 27.5 VOL% (35.7-47.0); Hemoglobin 8.2 GM/DL (12.0-16.0); Immature Granulocytes % 0.7 %; Immature Granulocytes Absolute 0.04 #; Lymphocytes # 0.9 10*3/uL (1.4-4.0); Lymphocytes % 14.4 % (21.3-54.2); Mean Corpuscular HGB Conc 29.8 GM/DL (32-36); Mean Corpuscular Hemoglobin 29 PG (27-34); Mean Corpuscular Volume 96.2 FL (87-102); Mean Platelet Volume 10.2 FL (9.6-12.0); Monocytes # 0.6 10*3/uL (0.11-0.8); NRBC # 0.02 10*3/uL; Neutrophils # 4.5 10*3/uL (1.4-7.4); Neutrophils % 73.7 % (38.7-73.9); Platelet Count 203 T/CUMM (130-400); Red Blood Count 2.86 MC/CUMM (3.8-5.5); Red Cell Distribution Width 20.9 % (9.3-17.3); White Blood Count 6.1 T/CUMM (4-12)
[2018-07-02] MEDS ORDERED: FUROSEMIDE 20 MG/2 ML VIAL ONE (15:05)
[2018-07-03] MEDS: cefTRIAXone 1,000 MG in SYRINGE 1 EACH IV SCH (00:10)
[2018-07-03] MEDS: AZITHROMYCIN INJ 500 MG in SODIUM CHLORIDE 0.9% 250 ML IV SCH (00:14)
[2018-07-03] MEDS: ALBUTEROL/IPRATROPIUM 3 ML NEB RESP TX SCH ×6 (03:51→23:56)
[2018-07-03] MEDS: ACETAMINOPHEN 325 MG TABLET PO PRN (07:50)
[2018-07-03] MEDS: FUROSEMIDE 40 MG/4 ML VIAL IV SCH ×2 (09:32→15:47)
[2018-07-03] MEDS: LEFLUNOMIDE 10 MG TABLET PO SCH (09:33)
[2018-07-03] MEDS: PANTOPRAZOLE 40 MG TABLET PO SCH ×2 (09:33→20:19)
[2018-07-03] MEDS: CARVEDILOL 25 MG TABLET PO SCH ×2 (09:33→20:20)
[2018-07-03] MEDS: amLODIPine 10 MG TABLET PO SCH (09:33)
[2018-07-03] MEDS: ASCORBIC ACID 500 MG TABLET PO SCH (09:33)
[2018-07-03] MEDS: MONTELUKAST 10 MG TABLET PO SCH (09:33)
[2018-07-03] MEDS: ISOSORBIDE MONONITRATE 20 MG TABLET PO SCH ×2 (09:33→15:47)
[2018-07-03] MEDS: INSULIN REGULAR 100 UNIT/ML SUBCUT SCH ×3 (09:34→17:26)
[2018-07-04] MEDS: cefTRIAXone 1,000 MG in SYRINGE 1 EACH IV SCH (00:38)
[2018-07-04] MEDS: AZITHROMYCIN INJ 500 MG in SODIUM CHLORIDE 0.9% 250 ML IV SCH (00:43)
[2018-07-04] MEDS: INSULIN REGULAR 100 UNIT/ML SUBCUT SCH ×5 (00:45→22:18)
[2018-07-04] MEDS: ACETAMINOPHEN 325 MG TABLET PO PRN (00:49)
[2018-07-04] MEDS: ALBUTEROL/IPRATROPIUM 3 ML NEB RESP TX SCH ×5 (02:54→21:11)
[2018-07-04 05:03] LABS: Basophils % 0.2 % (0.0-0.8); Eosinophils # 0.3 10*3/uL (0.0-0.87); Eosinophils % 6.1 % (0.00-10.9); Hematocrit 26.6 VOL% (35.7-47.0); Immature Granulocytes % 0.9 %; Immature Granulocytes Absolute 0.05 #; Lymphocytes # 0.9 10*3/uL (1.4-4.0); Lymphocytes % 16.5 % (21.3-54.2); Mean Corpuscular HGB Conc 30.1 GM/DL (32-36); Mean Corpuscular Hemoglobin 29 PG (27-34); Mean Corpuscular Volume 95.3 FL (87-102); Mean Platelet Volume 10.8 FL (9.6-12.0); Monocytes # 0.6 10*3/uL (0.11-0.8); Monocytes % 10.7 % (1.7-12.7); Neutrophils # 3.6 10*3/uL (1.4-7.4); Neutrophils % 65.6 % (38.7-73.9); Platelet Count 177 T/CUMM (130-400); Red Blood Count 2.79 MC/CUMM (3.8-5.5); Red Cell Distribution Width 19.9 % (9.3-17.3); White Blood Count 5.4 T/CUMM (4-12)
[2018-07-04 05:12] LABS: Calcium 7.8 MG/DL (8.5-10.1); Osmolality,Calculated 306.7 MOS/KG (273-304)
[2018-07-04] MEDS ORDERED: SODIUM CHLORIDE 0.9% 1,000 ML IV PRN ×2 (08:09→16:07)
[2018-07-04] MEDS: ASCORBIC ACID 500 MG TABLET PO SCH (10:09)
[2018-07-04] MEDS: MONTELUKAST 10 MG TABLET PO SCH (10:09)
[2018-07-04] MEDS: LEFLUNOMIDE 10 MG TABLET PO SCH (10:09)
[2018-07-04] MEDS: PANTOPRAZOLE 40 MG TABLET PO SCH ×2 (10:10→22:23)
[2018-07-04] MEDS: amLODIPine 10 MG TABLET PO SCH (10:10)
[2018-07-04] MEDS: CARVEDILOL 25 MG TABLET PO SCH ×2 (10:10→22:23)
[2018-07-04] MEDS: ISOSORBIDE MONONITRATE 20 MG TABLET PO SCH ×2 (10:10→14:48)
[2018-07-04] MEDS: FUROSEMIDE 40 MG/4 ML VIAL IV SCH ×2 (10:34→17:15)
[2018-07-04] MEDS: FERROUS SULFATE 325 MG TABLET PO SCH (22:23)
[2018-07-05] MEDS: cefTRIAXone 1,000 MG in SYRINGE 1 EACH IV SCH (00:26)
[2018-07-05] MEDS: AZITHROMYCIN INJ 500 MG in SODIUM CHLORIDE 0.9% 250 ML IV SCH (00:27)
[2018-07-05] MEDS: ALBUTEROL/IPRATROPIUM 3 ML NEB RESP TX SCH ×5 (01:07→14:45)
[2018-07-05 03:59] LABS: Basophils % 0.6 % (0.0-0.8); Eosinophils # 0.4 10*3/uL (0.0-0.87); Eosinophils % 7.2 % (0.00-10.9); Hemoglobin 9.2 GM/DL (12.0-16.0); Immature Granulocytes Absolute 0.05 #; Lymphocytes # 0.9 10*3/uL (1.4-4.0); Lymphocytes % 18.4 % (21.3-54.2); Mean Corpuscular HGB Conc 30.7 GM/DL (32-36); Mean Corpuscular Hemoglobin 28 PG (27-34); Mean Platelet Volume 11.2 FL (9.6-12.0); Monocytes # 0.6 10*3/uL (0.11-0.8); Monocytes % 11.7 % (1.7-12.7); Neutrophils # 3.1 10*3/uL (1.4-7.4); Neutrophils % 61.1 % (38.7-73.9); Platelet Count 177 T/CUMM (130-400); Red Blood Count 3.26 MC/CUMM (3.8-5.5); Red Cell Distribution Width 19.3 % (9.3-17.3); White Blood Count 5.1 T/CUMM (4-12)
[2018-07-05 04:20] LABS: Calcium 7.9 MG/DL (8.5-10.1); Potassium 4.1 MMOL/L (3.5-5.1)
[2018-07-05] MEDS: INSULIN REGULAR 100 UNIT/ML SUBCUT SCH ×2 (07:57→12:21)
[2018-07-05] MEDS: MONTELUKAST 10 MG TABLET PO SCH (08:47)
[2018-07-05] MEDS: LEFLUNOMIDE 10 MG TABLET PO SCH (08:47)
[2018-07-05] MEDS: PANTOPRAZOLE 40 MG TABLET PO SCH (08:47)
[2018-07-05] MEDS: ISOSORBIDE MONONITRATE 20 MG TABLET PO SCH ×2 (08:47→15:22)
[2018-07-05] MEDS: amLODIPine 10 MG TABLET PO SCH (08:47)
[2018-07-05] MEDS: ASCORBIC ACID 500 MG TABLET PO SCH (08:48)
[2018-07-05] MEDS: CARVEDILOL 25 MG TABLET PO SCH (08:48)
[2018-07-05] MEDS ORDERED: LEVOFLOXACIN 500 MG TABLET PO SCH (09:00)
[2018-07-05] MEDS: FERROUS SULFATE 325 MG TABLET PO SCH (09:34)
[2018-07-05] MEDS: FUROSEMIDE 40 MG/4 ML VIAL IV SCH (09:54)
[2018-07-05 15:28] VITALS: BP 154/75
[2018-07-05] MEDS ORDERED: FUROSEMIDE 40 MG TABLET PO SCH (16:00)
== END 2018-07-05 17:30 | disposition home health service (06) | DRG 377 ==
LOC: SUATTDRO 22:41 → N.CC 22:41 → N.TELES 06-30 12:08
PROVIDERS: ADMIT Internal Medicine; ATTEND Internal Medicine

== ENCOUNTER 2018-07-06 11:55 | Inpatient (IN) ==
[2018-07-06] MEDS ORDERED: methylPREDNISolone SOD SUC 125 MG/2 ML VIAL IV STA (12:36)
[2018-07-06] MEDS ORDERED: FUROSEMIDE 100 MG/10 ML VIAL IV STA (12:36)
[2018-07-06] MEDS ORDERED: ALBUTEROL 2.5 MG/3 ML NEB RESP TX SCH (13:00)
[2018-07-06] MEDS ORDERED: FUROSEMIDE 40 MG/4 ML VIAL IV STA (13:08)
[2018-07-06] MEDS ORDERED: hydrALAZINE 20 MG/1 ML VIAL IV STA (13:49)
[2018-07-06] MEDS ORDERED: hydrALAZINE 20 MG/1 ML VIAL ONE (13:50)
[2018-07-06 14:00] LABS: Troponin I 0.027 NG/ML (0.00-0.045)
[2018-07-06] MEDS ORDERED: FUROSEMIDE 40 MG/4 ML VIAL IV ONE (14:00)
[2018-07-06] MEDS ORDERED: INFLUENZA VIRUS VACCINE 0.5 ML SYRINGE IM ONE (15:49)
[2018-07-06] MEDS: PANTOPRAZOLE 40 MG TABLET PO SCH ×2 (16:29→21:03)
[2018-07-06] MEDS: ISOSORBIDE MONONITRATE 20 MG TABLET PO SCH (16:29)
[2018-07-06] MEDS: ASPIRIN EC 81 MG TABLET PO SCH (16:29)
[2018-07-06] MEDS ORDERED: NIFEdipine 10 MG CAPSULE PO PRN (16:53)
[2018-07-06 17:06] LABS: Apearance,Urine Slightly Hazy (Clear); Bacteria,Urine Occasional /HPF (Few); Bilirubin,Urine Negative (Negative); Blood, Urine Negative (Negative); Glucose,Urine (UA) Negative (Negative); Ketones,Urine Negative (Negative); Nitrite,Urine Negative (Negative); Protein,Urine 30 MG/DL; RBC,Urine 1 /HPF (0-4); Squamous Epithelial Cell,Urine Occasional /HPF (0-10); Urine Color Yellow (Yellow); Urine Specific Gravity 1.008 (1.001-1.035); Urine Urobilinogen < 2.0 EU/DL (0.2-1.0); WBC,Urine 5 /HPF (0-6)
[2018-07-06] MEDS: ALBUTEROL/IPRATROPIUM 3 ML NEB RESP TX SCH ×2 (17:24→19:09)
[2018-07-06] MEDS: METOPROLOL TARTRATE 100 MG TABLET PO SCH ×2 (17:54→21:03)
[2018-07-06] MEDS: hydrALAZINE 20 MG/1 ML VIAL IV PRN (18:09)
[2018-07-06] MEDS: FUROSEMIDE 40 MG/4 ML VIAL IV SCH (21:12)
[2018-07-07] MEDS: hydrALAZINE 20 MG/1 ML VIAL IV PRN (01:45)
[2018-07-07 03:40] LABS: Hematocrit 34.6 VOL% (35.7-47.0); Hemoglobin 10.2 GM/DL (12.0-16.0); Immature Granulocytes Absolute 0.02 #; Lymphocytes # 0.3 10*3/uL (1.4-4.0); Lymphocytes % 14.3 % (21.3-54.2); Mean Corpuscular HGB Conc 29.5 GM/DL (32-36); Mean Corpuscular Hemoglobin 28 PG (27-34); Mean Corpuscular Volume 93.3 FL (87-102); Mean Platelet Volume 11.6 FL (9.6-12.0); Neutrophils # 1.6 10*3/uL (1.4-7.4); Neutrophils % 82.7 % (38.7-73.9); Platelet Count 191 T/CUMM (130-400); Red Blood Count 3.71 MC/CUMM (3.8-5.5); Red Cell Distribution Width 18.3 % (9.3-17.3)
[2018-07-07 04:00] LABS: Alanine Aminotransferase 22 U/L (13-56); Albumin 2.4 G/DL (3.4-5.0); Alkaline Phosphatase 163 U/L (45-117); Aspartate Amino Transferase 10 U/L (0-37); Blood Urea Nitrogen 57 MG/DL (7-18); Glucose 363 MG/DL (74-106); Osmolality,Calculated 307.5 MOS/KG (273-304); Potassium 4.7 MMOL/L (3.5-5.1); Sodium 139 MMOL/L (136-145); Total Protein 7.1 G/DL (6.4-8.3); Troponin I < 0.015 NG/ML (0.00-0.045)
[2018-07-07 04:31] LABS: Hypochromasia 1+; Ovalocytes 2+; Platelet Estimate Normal
[2018-07-07 04:32] LABS: Tear Drop Cells Few
[2018-07-07] MEDS: ALBUTEROL/IPRATROPIUM 3 ML NEB RESP TX SCH ×4 (07:09→19:39)
[2018-07-07] MEDS: FUROSEMIDE 40 MG/4 ML VIAL IV SCH ×2 (08:14→16:29)
[2018-07-07] MEDS: ISOSORBIDE MONONITRATE 20 MG TABLET PO SCH ×2 (08:14→14:54)
[2018-07-07] MEDS: INSULIN REGULAR 100 UNIT/ML SUBCUT SCH ×4 (08:19→20:55)
[2018-07-07] MEDS ORDERED: ONDANSETRON 4 MG/2 ML VIAL IV PRN (08:30)
[2018-07-07] MEDS: PANTOPRAZOLE 40 MG TABLET PO SCH ×2 (09:20→20:49)
[2018-07-07] MEDS: LEFLUNOMIDE 10 MG TABLET PO SCH (09:20)
[2018-07-07] MEDS: ASPIRIN EC 81 MG TABLET PO SCH (09:20)
[2018-07-07] MEDS: METOPROLOL TARTRATE 100 MG TABLET PO SCH ×2 (09:20→20:49)
[2018-07-07] MEDS: FOLIC ACID 1 MG TABLET PO SCH (20:49)
[2018-07-08 05:51] LABS: Basophils % 0.2 % (0.0-0.8); Eosinophils % 0.2 % (0.00-10.9); Hematocrit 31.6 VOL% (35.7-47.0); Hemoglobin 9.6 GM/DL (12.0-16.0); Immature Granulocytes Absolute 0.05 #; Lymphocytes % 19.3 % (21.3-54.2); Mean Corpuscular HGB Conc 30.4 GM/DL (32-36); Mean Corpuscular Hemoglobin 28 PG (27-34); Mean Corpuscular Volume 92.7 FL (87-102); Mean Platelet Volume 11.6 FL (9.6-12.0); Monocytes # 0.5 10*3/uL (0.11-0.8); Monocytes % 10.3 % (1.7-12.7); Neutrophils # 3.6 10*3/uL (1.4-7.4); Platelet Count 198 T/CUMM (130-400); Red Blood Count 3.41 MC/CUMM (3.8-5.5); Red Cell Distribution Width 17.8 % (9.3-17.3); White Blood Count 5.2 T/CUMM (4-12)
[2018-07-08 06:02] LABS: Calcium 7.8 MG/DL (8.5-10.1); Osmolality,Calculated 296.5 MOS/KG (273-304); Potassium 4.6 MMOL/L (3.5-5.1)
[2018-07-08] MEDS: ALBUTEROL/IPRATROPIUM 3 ML NEB RESP TX SCH ×4 (07:08→19:05)
[2018-07-08] MEDS: LEFLUNOMIDE 10 MG TABLET PO SCH (08:29)
[2018-07-08] MEDS: ISOSORBIDE MONONITRATE 20 MG TABLET PO SCH ×2 (08:30→15:30)
[2018-07-08] MEDS: ASPIRIN EC 81 MG TABLET PO SCH (08:30)
[2018-07-08] MEDS: MONTELUKAST 10 MG TABLET PO SCH (08:31)
[2018-07-08] MEDS: METOPROLOL TARTRATE 100 MG TABLET PO SCH ×2 (08:32→21:00)
[2018-07-08] MEDS: ASCORBIC ACID 500 MG TABLET PO SCH (08:32)
[2018-07-08] MEDS: PANTOPRAZOLE 40 MG TABLET PO SCH ×2 (08:32→21:00)
[2018-07-08] MEDS: amLODIPine 10 MG TABLET PO SCH (08:32)
[2018-07-08] MEDS: FUROSEMIDE 40 MG/4 ML VIAL IV SCH ×2 (08:33→15:40)
[2018-07-08] MEDS: INSULIN REGULAR 100 UNIT/ML SUBCUT SCH ×4 (08:52→21:00)
[2018-07-08] MEDS ORDERED: ERGOCALCIFEROL 50,000 UNIT CAPSULE PO SCH (09:00)
[2018-07-08] MEDS: FOLIC ACID 1 MG TABLET PO SCH (21:01)
[2018-07-09 06:26] LABS: Basophils % 0.2 % (0.0-0.8); Eosinophils # 0.1 10*3/uL (0.0-0.87); Hematocrit 31.8 VOL% (35.7-47.0); Hemoglobin 9.3 GM/DL (12.0-16.0); Immature Granulocytes Absolute 0.06 #; Lymphocytes % 15.6 % (21.3-54.2); Mean Corpuscular HGB Conc 29.2 GM/DL (32-36); Mean Corpuscular Hemoglobin 27 PG (27-34); Mean Platelet Volume 11.5 FL (9.6-12.0); Monocytes # 0.6 10*3/uL (0.11-0.8); Monocytes % 9.4 % (1.7-12.7); Neutrophils # 4.4 10*3/uL (1.4-7.4); Neutrophils % 71.8 % (38.7-73.9); Platelet Count 208 T/CUMM (130-400); Red Blood Count 3.42 MC/CUMM (3.8-5.5); Red Cell Distribution Width 17.3 % (9.3-17.3); White Blood Count 6.1 T/CUMM (4-12)
[2018-07-09 06:45] LABS: Calcium 7.8 MG/DL (8.5-10.1); Osmolality,Calculated 302.3 MOS/KG (273-304)
[2018-07-09] MEDS: ALBUTEROL/IPRATROPIUM 3 ML NEB RESP TX SCH ×4 (06:52→19:41)
[2018-07-09] MEDS: INSULIN REGULAR 100 UNIT/ML SUBCUT SCH ×4 (07:52→21:14)
[2018-07-09] MEDS: ISOSORBIDE MONONITRATE 20 MG TABLET PO SCH ×2 (09:23→15:48)
[2018-07-09] MEDS: METOPROLOL TARTRATE 100 MG TABLET PO SCH ×2 (09:23→20:53)
[2018-07-09] MEDS: ASCORBIC ACID 500 MG TABLET PO SCH (09:23)
[2018-07-09] MEDS: MONTELUKAST 10 MG TABLET PO SCH (09:23)
[2018-07-09] MEDS: PANTOPRAZOLE 40 MG TABLET PO SCH ×2 (09:24→20:53)
[2018-07-09] MEDS: amLODIPine 10 MG TABLET PO SCH (09:24)
[2018-07-09] MEDS: ASPIRIN EC 81 MG TABLET PO SCH (09:24)
[2018-07-09] MEDS: LEFLUNOMIDE 10 MG TABLET PO SCH (09:25)
[2018-07-09] MEDS: FUROSEMIDE 40 MG/4 ML VIAL IV SCH ×2 (09:41→16:05)
[2018-07-09] MEDS: FOLIC ACID 1 MG TABLET PO SCH (20:53)
[2018-07-10 05:50] LABS: Basophils % 0.4 % (0.0-0.8); Eosinophils # 0.2 10*3/uL (0.0-0.87); Hematocrit 32.3 VOL% (35.7-47.0); Hemoglobin 9.8 GM/DL (12.0-16.0); Immature Granulocytes % 0.9 %; Immature Granulocytes Absolute 0.05 #; Lymphocytes # 0.8 10*3/uL (1.4-4.0); Lymphocytes % 14.7 % (21.3-54.2); Mean Corpuscular HGB Conc 30.3 GM/DL (32-36); Mean Corpuscular Hemoglobin 28 PG (27-34); Mean Platelet Volume 11.1 FL (9.6-12.0); Monocytes # 0.8 10*3/uL (0.11-0.8); Monocytes % 13.7 % (1.7-12.7); Neutrophils # 3.8 10*3/uL (1.4-7.4); Neutrophils % 67.3 % (38.7-73.9); Platelet Count 182 T/CUMM (130-400); Red Blood Count 3.51 MC/CUMM (3.8-5.5); Red Cell Distribution Width 17.2 % (9.3-17.3); White Blood Count 5.6 T/CUMM (4-12)
[2018-07-10 06:23] LABS: Albumin 2.4 G/DL (3.4-5.0); Bilirubin,Total 0.7 MG/DL (0.2-1.0); Calcium 7.8 MG/DL (8.5-10.1); Osmolality,Calculated 298.4 MOS/KG (273-304); Potassium 3.7 MMOL/L (3.5-5.1); Total Protein 6.7 G/DL (6.4-8.3)
[2018-07-10] MEDS: ALBUTEROL/IPRATROPIUM 3 ML NEB RESP TX SCH ×4 (07:39→19:59)
[2018-07-10] MEDS: INSULIN REGULAR 100 UNIT/ML SUBCUT SCH ×4 (08:37→22:01)
[2018-07-10] MEDS: FUROSEMIDE 40 MG/4 ML VIAL IV SCH ×2 (09:03→18:07)
[2018-07-10] MEDS: ISOSORBIDE MONONITRATE 20 MG TABLET PO SCH ×2 (09:20→14:58)
[2018-07-10] MEDS: amLODIPine 10 MG TABLET PO SCH (09:20)
[2018-07-10] MEDS: METOPROLOL TARTRATE 100 MG TABLET PO SCH ×2 (09:20→22:03)
[2018-07-10] MEDS: PANTOPRAZOLE 40 MG TABLET PO SCH ×2 (09:20→21:59)
[2018-07-10] MEDS: ASPIRIN EC 81 MG TABLET PO SCH (09:20)
[2018-07-10] MEDS: LEFLUNOMIDE 10 MG TABLET PO SCH (09:20)
[2018-07-10] MEDS: ASCORBIC ACID 500 MG TABLET PO SCH (09:21)
[2018-07-10] MEDS: MONTELUKAST 10 MG TABLET PO SCH (09:21)
[2018-07-10 11:26] LABS: Apearance,Urine CLOUDY (Clear); Bacteria,Urine Moderate /HPF (Few); Bilirubin,Urine Negative (Negative); Blood, Urine Moderate mg/dL (Negative); Glucose,Urine (UA) Negative (Negative); Ketones,Urine Negative (Negative); Mucus,Urine Occasional /LPF (Occasional); Nitrite,Urine Negative (Negative); Protein,Urine 30 MG/DL; RBC,Urine 82 /HPF (0-4); Squamous Epithelial Cell,Urine Occasional /HPF (0-10); Urine Color Yellow (Yellow); Urine Specific Gravity 1.006 (1.001-1.035); Urine Urobilinogen < 2.0 EU/DL (0.2-1.0); WBC,Urine 149 /HPF (0-6)
[2018-07-10] MEDS ORDERED: LEVOFLOXACIN 250 MG TABLET PO SCH (18:30)
[2018-07-10] MEDS: FOLIC ACID 1 MG TABLET PO SCH (21:59)
[2018-07-11 05:28] LABS: Basophils % 0.3 % (0.0-0.8); Eosinophils # 0.1 10*3/uL (0.0-0.87); Hematocrit 32.4 VOL% (35.7-47.0); Hemoglobin 9.8 GM/DL (12.0-16.0); Immature Granulocytes % 0.7 %; Immature Granulocytes Absolute 0.04 #; Lymphocytes # 0.7 10*3/uL (1.4-4.0); Lymphocytes % 12.3 % (21.3-54.2); Mean Corpuscular HGB Conc 30.2 GM/DL (32-36); Mean Corpuscular Hemoglobin 28 PG (27-34); Mean Corpuscular Volume 90.8 FL (87-102); Monocytes # 0.8 10*3/uL (0.11-0.8); Neutrophils # 4.3 10*3/uL (1.4-7.4); Neutrophils % 71.7 % (38.7-73.9); Platelet Count 190 T/CUMM (130-400); Red Blood Count 3.57 MC/CUMM (3.8-5.5); Red Cell Distribution Width 16.8 % (9.3-17.3)
[2018-07-11 06:18] LABS: Albumin 2.4 G/DL (3.4-5.0); Bilirubin,Total 0.7 MG/DL (0.2-1.0); Calcium 7.8 MG/DL (8.5-10.1); Osmolality,Calculated 299.3 MOS/KG (273-304); Potassium 3.6 MMOL/L (3.5-5.1)
[2018-07-11] MEDS: hydrALAZINE 20 MG/1 ML VIAL IV PRN (06:35)
[2018-07-11] MEDS: INSULIN REGULAR 100 UNIT/ML SUBCUT SCH ×2 (08:56→13:03)
[2018-07-11] MEDS: ALBUTEROL/IPRATROPIUM 3 ML NEB RESP TX SCH ×2 (09:06→11:19)
[2018-07-11] MEDS: PANTOPRAZOLE 40 MG TABLET PO SCH (10:34)
[2018-07-11] MEDS: LEFLUNOMIDE 10 MG TABLET PO SCH (10:34)
[2018-07-11] MEDS: ISOSORBIDE MONONITRATE 20 MG TABLET PO SCH ×2 (10:34→15:00)
[2018-07-11] MEDS: amLODIPine 10 MG TABLET PO SCH (10:34)
[2018-07-11] MEDS: METOPROLOL TARTRATE 100 MG TABLET PO SCH (10:34)
[2018-07-11] MEDS: ASPIRIN EC 81 MG TABLET PO SCH (10:34)
[2018-07-11] MEDS: MONTELUKAST 10 MG TABLET PO SCH (10:35)
[2018-07-11] MEDS: FUROSEMIDE 40 MG/4 ML VIAL IV SCH (10:35)
[2018-07-11] MEDS: ASCORBIC ACID 500 MG TABLET PO SCH (10:35)
[2018-07-11 11:47] VITALS: BP 163/81
[2018-07-11] MEDS ORDERED: PNEUMOCOCCAL VACCINE (13 VALENT) 0.5 ML SYRINGE IM ONE (14:00)
== END 2018-07-11 16:15 | DRG 291 ==
LOC: EDBD → EDUNIT# → N.ED 11:55 → SUATTDRO 13:34 → N.EDINP 13:34 → N.ICU 14:04 → N.TELEN 07-08 14:59
PROVIDERS: ADMIT Internal Medicine; ATTEND Internal Medicine